=== PATIENT | female | born 1945 | race Caucasian/White ===

== ENCOUNTER 2017-07-26 08:34 | Day surgery (SDC) | payer MEDICARE ==
[~2017-07-26 08:34] MED LIST: Bupivacaine 0.5% 50 ML MDV ONE; Lidocaine 1% with EPINEPHrine 1:100,000 50 ML MDV ONE
[2017-07-26] MEDS ORDERED: Dextrose 5%-Lactated Ringers 1,000 ML IV SCH (09:00)
[2017-07-26] MEDS ORDERED: Propofol 200 MG/20 ML SDV ONE ×2 (10:32→11:11)
[2017-07-26] MEDS ORDERED: Midazolam 1 MG/ML 2 ML SDV ONE (10:32)
[2017-07-26] MEDS ORDERED: fentaNYL 100 MCG/2 ML SDV ONE (10:32)
--- NOTE | 2017-07-26 10:41 | MY ---
EXAM: (Post Procedure Digital Lt, US Ndl Loc Breast Init LT) HISTORY: FIBROADENOMA BREAST N60.22 Technique: Informed oral consent was obtained for a wire localization. Risks of bleeding and infectio n explained to the patient. Patient agreed to proceed. Site overlying the left breast was prepped and draped in usual sterile fashion. 1% lidocaine used to anesthetize the skin and subcutaneous tissues. Following this, a 5 cm Kopan's needle was placed through the lesion under ultrasound. A wire was emp loyed. The needle was removed. Last ultrasound image demonstrates the thick portion of the wire direc tly through the mass. Post mammogram demonstrates the wire at the 3:00 position left breast. Note that the clip is a few mi llimeters superior and lateral to the thick portion of the wire.
--- NOTE | 2017-07-26 12:53 | MY ---
EXAM: (Surgical Specimen Breast) HISTORY: BREAST SPECIMAN LT BREAST Findings: The clip and the wire are located within the breast specimen.
--- NOTE | 2017-07-26 15:34 | OR ---
DATE OF PROCEDURE: 07/26/2017 PREOPERATIVE DIAGNOSIS: Nonpalpable fibroadenoma, left breast. POSTOPERATIVE DIAGNOSIS: Nonpalpable fibroadenoma, left breast. PROCEDURE: Left needle-directed breast biopsy. ANESTHESIA: IV anesthesia with monitored anesthesia care. INDICATIONS: This is a 71-year-old white female, who had a lesion in the left breast that was worrisome enough that Radiology recommended a biopsy. A core biopsy was obtained of this and returned a fibroadenoma. She is admitted for removal of this left breast fibroadenoma using a wire guidance. I counseled her for the procedure including the risks and alternatives, and she gave her informed consent to proceed. DESCRIPTION OF PROCEDURE: After the radiologist localized the lesion in the left breast with a wire under ultrasound guidance, she was taken to the operating room, where IV anesthesia was administered by the Anesthesia Service. Her left breast area was prepped and draped in the usual sterile fashion. Time-out was held. Lidocaine 1% with epinephrine in a 50:50 mix with 0.5% Marcaine was infiltrated over the wire. A transverse incision lateral to the areolar complex was made. It was carried deep to the wire and tissue about the wire was excised and sent to Radiology. X-rays showed that we had the lesion within the specimen. It was then sent to pathology. In the meantime, the incision was irrigated and suctioned dry. The deep tissues were closed with interrupted stitches of 3-0 Vicryl and 4-0 Vicryl using a subcuticular stitch was placed to approximate the skin. Dermabond was applied. A bulky dressing was applied. She tolerated the procedure well, and was brought to the recovery room in good condition. Addy White MD /[id number]
--- NOTE | 2017-07-31 07:46 | ANES ---
DATE OF SERVICE: 07/26/2017 ADDENDUM: Karie Estrada had a procedure on July 26, 2017. In the operating room, I used 240 mg of propofol. On the chart, it is documented as 200, so this is just an addendum, wasted 160 mg, given 240 mg. Rambo Duncan CRNA /[id number]
== END 2017-07-26 12:50 | disposition home or self-care (01) ==
LOC: JP.SDS 08:34
PROVIDERS: ATTEND Surgery
DX: D24.2 Benign neoplasm of left breast (principal); I10 Essential (primary) hypertension; Z88.1 Allergy status to other antibiotic agents; Z88.8 Allergy status to other drugs, medicaments and biological substances
CPT/HCPCS: 19285; 76098; 77065; 88305; J2250; J2704; J3010; J7042

== ENCOUNTER 2019-10-21 16:09 | Emergency (ER) | payer MEDICARE ==
[2019-10-21] MEDS ORDERED: HYDROmorphone 0.5 MG/0.5 ML Syringe IVPUSH ONE ×2 (17:23→18:41)
--- NOTE | 2019-10-21 17:41 | CRLCT ---
INDICATION: Trauma COMPARISON: None TECHNIQUE: : CT examination of the chest was performed without contrast. Thin axial sections were obtained from above the apices of the lungs to the lung bases. Please note that all CT scans at this facility use dose modulation, iterative reconstruction, and/or weight-based dosing when appropriate to reduce radiation dose to as low as reasonably achievable. FINDINGS: : HEART and MEDIASTINUM: The heart size is normal. There is no mediastinal or hilar adenopathy or mass. There is a small hiatal hernia and the esophagus is fluid filled as is the stomach suggesting gastroesophageal reflux. There are atherosclerotic vascular calcifications. LUNGS: Linear opacities of the lung bases likely atelectasis, less likely scarring PLEURAL SPACES: There is no pleural effusion, pneumothorax or pleural based mass. VISUALIZED UPPER ABDOMEN: The limited visualized upper abdominal structures appear normal. OSSEOUS STRUCTURES: There is a fracture the T12 vertebral body. This is a wedge-type deformity that is comminuted. The anterior superior aspect of T12 is displaced anteriorly and the posterior superior corner of T12 is displaced posteriorly. Maximum loss of height is in the middle 3rd of the vertebral body with about 50 percent loss of height maximum. There is no significant loss of height posteriorly. The posterior fragment is retropulsed into the canal is by about 5 millimeters. This is measured from axial image 89. However, the canal measured from behind the fractured segment displaced posteriorly measures about 1.6 centimeters so there is no canal stenosis on a bony basis. There is also a horizontally oriented fracture of the T11 spinous process. TUBES and LINES: None. IMPRESSION: 1. T12 fracture as described. This is associated with comminution and loss of height of the vertebral body with retropulsion of the posterior superior aspect of T12. There is also horizontally oriented fracture the T11 spinous process. 2. Minimal basilar atelectasis. 3. I discussed the above findings with Dr. Ferrell at 5:35 p.m. on October 21, [address] Please note that all CT scans at this facility use dose modulation, iterative reconstruction, and/or weight-based dosing when appropriate to reduce radiation dose to as low as reasonably achievable. Dictated by Hugh Staton MD @ Oct 21 2019 5:25PM Signed by Dr. Hugh Staton @ Oct 21 2019 5:39PM
--- NOTE | 2019-10-21 17:47 | EDM.PDOC ---
<Yinka Ferrell - Last Filed: 10/21/19 18:42> ED HPI GENERAL MEDICAL PROBLEM - General Chief Complaint: Back Pain or Injury Stated Complaint: ACCIDENT VIA [facility] Time Seen by Provider: 10/21/19 16:30 Source of Information: Reports: Patient, EMS History Limitations: Reports: No Limitations - History of Present Illness INITIAL COMMENTS - FREE TEXT/NARRATIVE: 73-year-old female fell at home striking her back very hard on the corner of some wooden railing, and then falling onto the floor bumping the back of her head. She was unable to get up so called her into the house who helped her up but it was too painful to sit so she laid back down on the floor and the ambulance was called. She has no peripheral paresthesias or limitations of range of motion of the extremities, but she has intensely painful mid back pain and pleuritic pain with breathing. No shortness of breath, loss of consciousness. She claims she heard a "crack" when her back it against the wooden border. She did receive some pain control from EMS which helped somewhat. The pain is very localized to her low lower thoracic spine. Onset: Sudden Duration: Hour(s): (1 hour ago) Location: Reports: Head, Back Associated Symptoms: Denies: Confusion, Chest Pain, Cough, Diaphoresis, Fever/ Chills, Malaise, Nausea/Vomiting, Shortness of Breath, Weakness Treatments RECREATION ADVISER: Reports: Other (see below) Other Treatments RECREATION ADVISER: zofran 4mg and dilaudid 0.5mg per ems Back Pain Score (Numeric/FACES): 6 - Related Data Allergies Allergy/AdvReac Type Severity Reaction Status Date / Time amoxicillin [From Augmentin] AdvReac Stomach Verified 10/21/19 16:15 Upset clavulanic acid AdvReac Stomach Verified 10/21/19 16:15 [From Augmentin] Upset Home Meds: Home Meds Ibuprofen 200 mg PO Q4HR PRN 07/24/17 [History] Carboxymethylcellulose Sodium [Thera Tears] 1 drop EYEBOTH ASDIRECTED PRN [History] Acetaminophen [Tylenol Extra Strength] 1,000 mg PO Q6H PRN 05/10/18 [History] Citalopram [Citalopram HBr] 20 mg PO DAILY 10/21/19 [History] Past Medical History HEENT History: Reports: Cataract, Impaired Vision Cardiovascular History: Reports: Hypertension Gastrointestinal History: Reports: GERD Other Gastrointestinal History: non-celiac gluten sensitivity Genitourinary History: Reports: None 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 - Infectious Disease History Infectious Disease History: Reports: Chicken Pox - Past Surgical History Other HEENT Surgeries/Procedures: Eye allignment surgery Female Surgical History: Reports: Breast Biopsy, Other (See Below) Other Female Surgeries/Procedures: breast biopsy with tissue removal last jun or July Musculoskeletal Surgical History: Reports: Ganglion Cyst Social & Family History - Tobacco Use Smoking Status *Q: Never Smoker - Caffeine Use Caffeine Use: Reports: Coffee - Alcohol Use Days Per Week of Alcohol Use: 1 Number of Drinks Per Day: 7 Total Drinks Per Week: 7 - Recreational Drug Use Recreational Drug Use: No ED ROS GENERAL - Review of Systems Review Of Systems: See Below Constitutional: Denies: Fever, Chills HEENT: Reports: No Symptoms Respiratory: Reports: Pleuritic Chest Pain. Denies: Shortness of Breath Cardiovascular: Denies: Chest Pain GI/Abdominal: Denies: Abdominal Pain, Nausea, Vomiting : Reports: No Symptoms Musculoskeletal: Reports: Back Pain Skin: Denies: Pallor, Bruising Neurological: Reports: No Symptoms. Denies: Headache Psychiatric: Reports: No Symptoms ED EXAM,LOWER BACK PAIN/INJURY - Physical Exam Exam: See Below Exam Limited By: No Limitations General Appearance: Alert, Mild Distress (Fairly uncomfortable with any movement ) Eye Exam: Bilateral Eye: Normal Inspection Head: Other (A small somewhat tender hematoma is on the inferior aspect of the septal scalp, no bony tenderness or irregularity) Neck: Supple, Non-Tender Respiratory/Chest: No Respiratory Distress, Lungs Clear Cardiovascular: Regular Rate, Rhythm GI/Abdominal: Soft, Non-Tender Back Exam: Vertebral Tenderness (Marked vertebral tenderness to palpation over the lower thoracic spine) Extremities: Normal Inspection Neurological: Alert, No Motor/Sensory Deficits, Oriented x 3 Psychiatric: Anxious Skin Exam: Warm, Dry, Other (No bruising or abrasion over the painful area of the back) Course - Vital Signs Last Recorded V/S: Last Vital Signs Temp 98.0 F 10/21/19 16:21 Pulse 85 10/21/19 18:38 Resp 16 10/21/19 16:21 BP 121/68 10/21/19 18:38 Pulse Ox 96 10/21/19 18:38 - Orders/Labs/Meds Meds: Medications Discontinued Medications Generic Name Dose Route Start Last Admin Trade Name Ceci PRN Reason Stop Dose Admin Hydromorphone HCl 0.5 mg 10/21/19 17:23 10/21/19 17:30 Dilaudid IVPUSH 10/21/19 17:24 0.5 mg ONETIME ONE Administration Hydromorphone HCl 0.5 mg 10/21/19 18:41 10/21/19 19:16 Dilaudid IVPUSH 10/21/19 18:42 0.5 mg ONETIME ONE Administration - Re-Assessments/Exams Free Text/Narrative Re-Assessment/Exam: 10/21/19 17:49 CT of the chest and thoracic spine were obtained without contrast. This confirmed a significant fracture of T12 and the spinous process of T11. Neurosurgical consultation will be obtained after they are able to review the films which were sent to [facility]. She was given an additional 0.5 mg of IV Dilaudid for pain control. 10/21/19 17:50 IMPRESSION: 1. T12 fracture as described. This is associated with comminution and loss of height of the vertebral body with retropulsion of the posterior superior aspect of T12. There is also horizontally oriented fracture the T11 spinous process. 2. Minimal basilar atelectasis. 3. I discussed the above findings with Dr. Ferrell at 5:35 p.m. on October 21, 2019 10/21/19 18:42 Discussed the patient's condition and CT findings with Dr. Chau, neurosurgeon at [facility] as well as the emergency room physician to accept transfer at 6:30 PM. She would not be accepted without a head CT initially, so this was ordered and she will be transferred after the head CT is read. An additional 0.5 mg of Dilaudid was given before care was turned over to Dr. Shieldsr pending disposition. Departure - Departure Disposition: DC/Tfer to [facility] Clinical Impression: T12 compression fracture Qualifiers: Encounter type: initial encounter Qualified Code(s): S22.080A - Wedge compression fracture of T11-T12 vertebra, initial encounter for closed fracture Fracture of spinous process of thoracic vertebra Qualifiers: Encounter type: initial encounter Fracture type: closed Qualified Code(s): S22.008A - Other fracture of unspecified thoracic vertebra, initial encounter for closed fracture Hematoma of scalp Qualifiers: Encounter type: initial encounter Qualified Code(s): S00.03XA - Contusion of scalp, initial encounter - Discharge Information Referrals: Sangita Blackburn PA [Primary Care Provider] - Forms: ED Department Discharge Sepsis Event Note - Evaluation Sepsis Screening Result: No Definite Risk - Focused Exam Vital Signs: Vital Signs Temp Pulse Resp BP Pulse Ox 10/21/19 18:38 85 121/68 96 10/21/19 17:40 96 119/71 10/21/19 16:57 79 112/70 10/21/19 16:21 98.0 F 84 16 114/79 89 L 10/21/19 16:15 98.0 F 84 16 114/79 89 L Date Exam was Performed: 10/21/19 Time Exam was Performed: 18:42 <OfficerMike - Last Filed: 10/21/19 19:34> Course - Re-Assessments/Exams Free Text/Narrative Re-Assessment/Exam: CT scan head negative, images and report faxed to [facility] final acceptance by Dr. Arriaza [facility] emergency room physician at 1933 she will be transported via EMS ground 10/21/19 19:33 Departure - Departure Time of Disposition: 19:33 Sepsis Event Note - Focused Exam Date Exam was Performed: 10/21/19 Time Exam was Performed: 19:31
--- NOTE | 2019-10-21 19:23 | CRLCT ---
HISTORY: Head injury. TECHNIQUE: Noncontrast head CT scan. COMPARISON: Head CT 05/07/2018. FINDINGS: Axial noncontrast images through the brain parenchyma demonstrates no acute intracranial hemorrhage or mass. No midline shift. No abnormal extra-axial air or fluid collections are seen. Visualized paranasal sinuses mastoid air cells skull scalp is unremarkable. IMPRESSION: No acute intracranial hemorrhage or mass. Please note that all CT scans at this facility use dose modulation, iterative reconstruction, and/or weight-based dosing when appropriate to reduce radiation dose to as low as reasonably achievable. Dictated by Ella Aguilera MD @ Oct 21 2019 7:20PM Signed by Dr. Ella Aguilera @ Oct 21 2019 7:22PM
[2019-10-21] MEDS ORDERED: HYDROmorphone 1 MG/ML Syringe IVPUSH ONE (20:42)
== END 2019-10-21 20:57 ==
LOC: JP.ED 16:09
DX: S22.080A Wedge compression fracture of T11-T12 vertebra, initial encounter for closed fracture (principal); S22.089A Unspecified fracture of T11-T12 vertebra, initial encounter for closed fracture; S00.03XA Contusion of scalp, initial encounter; I10 Essential (primary) hypertension; F41.9 Anxiety disorder, unspecified; Z88.0 Allergy status to penicillin; Z88.1 Allergy status to other antibiotic agents; Z79.899 Other long term (current) drug therapy; W01.198A Fall on same level from slipping, tripping and stumbling with subsequent striking against other object, initial encounter; Y92.009 Unspecified place in unspecified non-institutional (private) residence as the place of occurrence of the external cause
CPT/HCPCS: 70450; 71250; 96374; 96376; 99285; J1170

== ENCOUNTER 2019-12-26 18:51 | Emergency (ER) | payer MEDICARE ==
[2019-12-26] MEDS ORDERED: Cyclobenzaprine 10 MG Tab PO ONE (19:44)
--- NOTE | 2019-12-26 19:46 | EDM.PDOC ---
ED HPI GENERAL MEDICAL PROBLEM - General Chief Complaint: Wound Recheck Stated Complaint: NUMB TOES Time Seen by Provider: 12/26/19 19:36 Source of Information: Reports: Patient, Family, RN Notes Reviewed History Limitations: Reports: No Limitations - History of Present Illness INITIAL COMMENTS - FREE TEXT/NARRATIVE: 74-year-old female presents emergency department a complaint of low back pain, she does have a history of compression fracture T12 this happened back in September of this year she is currently in a KVNG brace. She states she was getting in the vehicle couple days ago had kind of a twisting injury now she has low back muscle pain she is also noticed some intermittent numbness and tingling in her toes Left Lower Back Pain Score (Numeric/FACES): 3 - Related Data Allergies Allergy/AdvReac Type Severity Reaction Status Date / Time amoxicillin [From Augmentin] AdvReac Stomach Verified 12/26/19 19:27 Upset clavulanic acid AdvReac Stomach Verified 12/26/19 19:27 [From Augmentin] Upset Home Meds: Home Meds Acetaminophen [Tylenol Extra Strength] 1,000 mg PO Q6H PRN 05/10/18 [History] Citalopram [Citalopram HBr] 20 mg PO DAILY 10/21/19 [History] Sulfamethoxazole/Trimethoprim [Sulfamethoxazole-Tmp Ds Tablet] 1 each PO DAILY 12/26/19 [History] lisinopriL [Lisinopril] 10 mg PO DAILY 12/26/19 [History] Past Medical History HEENT History: Reports: Cataract, Impaired Vision Cardiovascular History: Reports: Hypertension Gastrointestinal History: Reports: GERD Other Gastrointestinal History: non-celiac gluten sensitivity 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 - Infectious Disease History Infectious Disease History: Reports: Chicken Pox, Measles - Past Surgical History Other HEENT Surgeries/Procedures: Eye allignment surgery Female Surgical History: Reports: Breast Biopsy, Other (See Below) Other Female Surgeries/Procedures: breast biopsy with tissue removal last jun or July Musculoskeletal Surgical History: Reports: Ganglion Cyst Social & Family History - Tobacco Use Smoking Status *Q: Never Smoker - Caffeine Use Caffeine Use: Reports: Soda - Alcohol Use Days Per Week of Alcohol Use: 6 Number of Drinks Per Day: 3 Total Drinks Per Week: 18 - Recreational Drug Use Recreational Drug Use: No ED ROS GENERAL - Review of Systems Review Of Systems: See Below Constitutional: Reports: No Symptoms Respiratory: Reports: No Symptoms Cardiovascular: Reports: No Symptoms GI/Abdominal: Reports: No Symptoms Musculoskeletal: Reports: Back Pain Neurological: Reports: Numbness, Tingling ED EXAM,LOWER BACK PAIN/INJURY - Physical Exam Exam: See Below Exam Limited By: No Limitations General Appearance: Alert, WD/WN, No Apparent Distress Respiratory/Chest: No Respiratory Distress Back Exam: Normal Inspection. No: CVA Tenderness (R), CVA Tenderness (L), Decreased Range of Motion, Muscle Spasm, Paraspinal Tenderness, Vertebral Te nderness Extremities: No Pedal Edema Course - Vital Signs Last Recorded V/S: Last Vital Signs Temp 98.5 F 12/26/19 19:33 Pulse 109 H 12/26/19 19:33 Resp 16 12/26/19 19:33 BP 171/94 H 12/26/19 19:33 Pulse Ox 95 12/26/19 19:33 - Orders/Labs/Meds Meds: Medications Discontinued Medications Generic Name Dose Route Start Last Admin Trade Name Freq PRN Reason Stop Dose Admin Cyclobenzaprine HCl 10 mg 12/26/19 19:44 12/26/19 19:51 Flexeril PO 12/26/19 19:45 10 mg ONETIME ONE Administration Departure - Departure Time of Disposition: 20:14 Disposition: Home, Self-Care 01 Condition: Fair Clinical Impression: Spasm of muscle of lower back - Discharge Information Instructions: Muscle Cramps and Spasms Referrals: Sangita Blackburn PA [Primary Care Provider] - Forms: ED Department Discharge Additional Instructions: Continue to use Flexeril as needed for muscle spasms, please keep your follow-up appointment with neurosurgery and primary care, call or return to the emergency department worsening symptoms. Sepsis Event Note (ED) - Evaluation Sepsis Screening Result: No Definite Risk - Focused Exam Vital Signs: Vital Signs Temp Pulse Resp BP Pulse Ox 12/26/19 19:33 98.5 F 109 H 16 171/94 H 95 - Assessment/Plan Plan: Assessment Muscle spasm low back Plan She had good improvement with Flexeril provided in the emergency department, prescription written for Flexeril 1 tab p.o. 3 times daily as needed #30 keep follow-up appointment with neurosurgery
== END 2019-12-26 20:24 | disposition home or self-care (01) ==
LOC: JP.ED 18:51
DX: M62.830 Muscle spasm of back (principal); F41.9 Anxiety disorder, unspecified; Z79.899 Other long term (current) drug therapy; Z88.1 Allergy status to other antibiotic agents
CPT/HCPCS: 99283; A9270